=== PATIENT | female | born 1940 | race Asian ===

== ENCOUNTER 2017-05-13 08:00 | Outpatient (CLI) | payer MEDICARE, MEDICAID ==
[2017-05-13 12:40] LABS: THYROID STIMULATING HORMONE 17.07 uIU/mL (0.34-5.60)
[2017-05-13 12:44] LABS: FREE T4 (FREE THYROXINE) 0.95 ng/dL (0.58-1.64)
== END 2017-05-13 08:01 | disposition home or self-care (01) ==
LOC: LAB.WCP 08:00
PROVIDERS: ATTEND Family Medicine
DX: E03.9 Hypothyroidism, unspecified (principal)
CPT/HCPCS: 36415; 84439; 84443; 84481

== ENCOUNTER 2017-05-27 08:00 | Outpatient (CLI) | payer MEDICARE, MEDICAID ==
[2017-05-27 13:05] LABS: THYROID STIMULATING HORMONE 6.83 uIU/mL (0.34-5.60)
[2017-05-27 13:07] LABS: FREE T4 (FREE THYROXINE) 1.05 ng/dL (0.58-1.64)
== END 2017-05-27 08:01 | disposition home or self-care (01) ==
LOC: LAB.WCP 08:00
PROVIDERS: ATTEND Family Medicine
DX: E03.9 Hypothyroidism, unspecified (principal)
CPT/HCPCS: 36415; 84439; 84443; 84481

== ENCOUNTER 2017-06-27 08:00 | Outpatient (CLI) | payer MEDICARE, MEDICAID ==
[2017-06-27 13:58] LABS: THYROID STIMULATING HORMONE 4.18 uIU/mL (0.34-5.60)
[2017-06-27 14:00] LABS: FREE T4 (FREE THYROXINE) 1.09 ng/dL (0.58-1.64)
== END 2017-06-27 08:01 ==
LOC: LAB.WCP 08:00
PROVIDERS: ATTEND Family Medicine
DX: E03.9 Hypothyroidism, unspecified (principal)
CPT/HCPCS: 36415; 84439; 84443; 84481

== ENCOUNTER 2017-09-30 08:00 | Outpatient (CLI) | payer MEDICARE, MEDICAID ==
[2017-09-30 12:27] LABS: BASOPHILS % (AUTO) 0.6 %; EOSINOPHILS # (AUTO) 0.1 10^3/uL (0.0-0.7); EOSINOPHILS % (AUTO) 1.9 %; HGB - HEMOGLOBIN 14.4 g/dL (12.0-16.0); LYMPHOCYTES # (AUTO) 1.8 10^3/uL (1.5-3.5); LYMPHOCYTES % (AUTO) 32.9 %; MEAN CORPUSCULAR HEMOGLOBIN 31.1 pg (27.0-31.0); MEAN CORPUSCULAR HGB CONC 34.1 g/dL (32.0-36.0); MEAN CORPUSCULAR VOLUME 91.3 fL (81.0-99.0); MEAN PLATELET VOLUME 9.2 fL (7.9-10.8); MONOCYTES # (AUTO) 0.5 10^3/uL (0.0-1.0); MONOCYTES % (AUTO) 9.2 %; NEUTROPHILS % (AUTO) 55.4 %; PLT - PLATELET COUNT 231 10^3/uL (130-450); RED BLOOD COUNT 4.62 10^6/uL (4.20-5.40); RED CELL DISTRIBUTION WIDTH 12.9 % (12.0-15.0); WHITE BLOOD COUNT 5.4 x10^3/uL (4.8-10.8)
[2017-09-30 12:31] LABS: ALBUMIN 4.1 g/dL (3.2-5.5); ALBUMIN/GLOBULIN RATIO 1.2 (1.0-2.2); BILIRUBIN,TOTAL 0.7 mg/dL (0.2-1.0); CALCIUM 9.6 mg/dL (8.5-10.3); CREATININE 0.9 mg/dL (0.4-1.0); TOTAL PROTEIN 7.5 g/dL (6.7-8.2)
== END 2017-09-30 08:01 | disposition home or self-care (01) ==
LOC: LAB.WCP 08:00
PROVIDERS: ATTEND Family Medicine
DX: R25.2 Cramp and spasm (principal)
CPT/HCPCS: 36415; 80053; 85025; 85379

== ENCOUNTER 2017-09-30 14:32 | Emergency (ER) | payer MEDICARE, MEDICAID ==
--- NOTE | 2017-09-30 16:59 | ED Physician Documentation ---
History of Present Illness - Stated complaint Stated Complaint: L LOWER LEG PAIN - Chief complaint Chief Complaint: Ext Problem - History obtained from History obtained from: Patient - Additonal information Additional information: 77-year-old female was sent to the emergency department for ultrasound to rule out a blood clot in her left lower extremity. The patient has had 3+ weeks of pain in the left lateral calf. The patient denies any swelling.The patient denies chest pain, shortness of breath or cough. The patient denies redness, fevers or chills. Things are described as moderate. No other associated symptoms. No recent trauma or injury Review of Systems Constitutional: denies: Fever, Myalgias Throat: denies: Sore throat Cardiac: denies: Chest pain / pressure Respiratory: denies: Dyspnea, Cough Skin: denies: Rash, Laceration (s) Musculoskeletal: reports: Extremity pain. denies: Extremity swelling PD PAST MEDICAL HISTORY - Past Medical History Endocrine/Autoimmune: HyPOthyroidism - Allergies Allergies/Adverse Reactions: Allergies Allergy/AdvReac Type Severity Reaction Status Date / Time No Known Drug Allergies Allergy Verified 09/30/17 14:48 - Social History Does the pt smoke?: No Smoking Status: Never smoker Does the pt drink ETOH?: No Does the pt have substance abuse?: No PD ED PE NORMAL - General General: Alert and oriented X 3, No acute distress - HEENT HEENT: Atraumatic, PERRL, EOMI - Neck Neck: Supple, no meningeal sign - Cardiac Cardiac: RRR, Strong equal pulses - Respiratory Respiratory: No respiratory distress, Clear bilaterally - Derm Derm: Normal color, Warm and dry, No rash - Neuro Neuro: Alert and oriented X 3, Normal speech - Psych Psych: Normal affect PD ED PE EXPANDED - Extremities AL LE visual: 1 - tenderness (The patient has tenderness to palpation in this area, there is no bruising, ecchymosis, erythematous changes or signs of acute infection. The patient has normal range of motion of the bilateral hips, knees, ankles and feet. The patient ambulates without difficulty. There is normal cap refill and normal dorsalis pedis pulse) Results - Vitals Vitals: Vital Signs - 24 hr 18 09/30/17 14:41 17:10 Temperature 36.2 C L 36.8 C Heart Rate 85 89 Respiratory 18 20 Rate Blood Pressure 179/86 H 152/94 H O2 Saturation 97 100 Oxygen O2 Source Room air - Rads (name of study) US LEG Radiology: Final report received (IMPRESSION: No evidence for deep venous thrombosis. ) PD MEDICAL DECISION MAKING - ED course ED course: No acute DVT, the patient appears appropriate for discharge and ongoing outpatient management. Discussed with her and her family the findings. They understand and agree. I discussed warning signs and recommended returning to the emergency department immediately for worsening or any concerns - Sepsis Event Vital Signs: Vital Signs - 24 hr 09/30/17 09/30/17 14:41 17:10 Temperature 36.2 C L 36.8 C Heart Rate 85 89 Respiratory 18 20 Rate Blood Pressure 179/86 H 152/94 H O2 Saturation 97 100 Oxygen O2 Source Room air Departure - Departure Disposition: 01 Home, Self Care Clinical Impression: Leg pain Qualifiers: Laterality: unspecified laterality Qualified Code(s): M79.606 - Pain in leg, unspecified Condition: Good Instructions: ED Acute Pain [facility] Follow-Up: Charles Yen MD [Primary Care Provider] - Within 3 Days Comments: Please follow-up with primary care for recheck. Please return to the emergency department for worsening symptoms or any concerns
[2017-09-30 17:11] VITALS: BP 152/94
--- NOTE | 2017-09-30 17:12 | Ultrasound Report ---
Reason: L leg swelling Procedure Date: 09/30/2017 Accession Number: [id number] / [id number] Procedure: US - Duplex Ext Veins Left CPT Code: FULL RESULT: EXAM: LEFT LOWER EXTREMITY VENOUS ULTRASOUND EXAM DATE: 09/30/2017 04:54 PM. CLINICAL HISTORY: Left calf pain. COMPARISON: None. TECHNIQUE: Real-time sonographic vascular imaging was performed by the windows support engineer through the lower extremity utilizing both color-flow and Doppler spectral analysis. Multiple in home sales representative static images were saved for review. FINDINGS: Common Femoral Vein (CFV): Normal. CFV-GSV Junction: Normal. Profunda Femoral Vein (PFV): Normal. Femoral Vein (FV) Prox: Normal. Femoral Vein (FV) Mid: Normal. Femoral Vein (FV) Dist: Normal. Popliteal Vein: Normal. Posterior Tibial Veins: Normal. Peroneal Veins: Normal. Contralateral Side CFV: Normal. Other: None. IMPRESSION: No evidence for deep venous thrombosis. RADIA
== END 2017-09-30 17:47 | disposition home or self-care (01) ==
LOC: ED 14:32
DX: M79.662 Pain in left lower leg (principal); R25.2 Cramp and spasm; E03.9 Hypothyroidism, unspecified
CPT/HCPCS: 36415; 80053; 85025; 85379; 99282; 99283

== ENCOUNTER 2018-10-26 08:00 | Outpatient (CLI) | payer MEDICARE, MEDICAID ==
[2018-10-26 12:16] LABS: BASOPHILS % (AUTO) 0.4 %; EOSINOPHILS # (AUTO) 0.1 10^3/uL (0.0-0.7); EOSINOPHILS % (AUTO) 1.7 %; HGB - HEMOGLOBIN 14.6 g/dL (12.0-16.0); LYMPHOCYTES # (AUTO) 1.7 10^3/uL (1.5-3.5); LYMPHOCYTES % (AUTO) 24.9 %; MEAN CORPUSCULAR HEMOGLOBIN 30.7 pg (27.0-31.0); MEAN CORPUSCULAR HGB CONC 32.7 g/dL (32.0-36.0); MEAN CORPUSCULAR VOLUME 93.9 fL (81.0-99.0); MEAN PLATELET VOLUME 10.8 fL (7.9-10.8); MONOCYTES # (AUTO) 0.7 10^3/uL (0.0-1.0); MONOCYTES % (AUTO) 9.7 %; NEUTROPHILS # (AUTO) 4.3 10^3/uL (1.5-6.6); NEUTROPHILS % (AUTO) 62.7 %; PLT - PLATELET COUNT 249 10^3/uL (130-450); RED BLOOD COUNT 4.75 10^6/uL (4.20-5.40); RED CELL DISTRIBUTION WIDTH 12.5 % (12.0-15.0); WHITE BLOOD COUNT 6.9 x10^3/uL (4.8-10.8)
[2018-10-26 13:17] LABS: T4 (THYROXINE) 10.07 ug/dL (6.09-12.23)
[2018-10-26 13:19] LABS: THYROID STIMULATING HORMONE 2.32 uIU/mL (0.34-5.60)
[2018-10-26 13:23] LABS: FREE T4 (FREE THYROXINE) 1.26 ng/dL (0.58-1.64)
[2018-10-26 13:27] LABS: ALBUMIN 4.1 g/dL (3.2-5.5); ALBUMIN/GLOBULIN RATIO 1.1 (1.0-2.2); BILIRUBIN,TOTAL 0.8 mg/dL (0.2-1.0); CALCIUM 9.3 mg/dL (8.5-10.3); CREATININE 0.8 mg/dL (0.4-1.0); TOTAL PROTEIN 7.8 g/dL (6.7-8.2)
== END 2018-10-26 23:59 | disposition home or self-care (01) ==
LOC: LAB.WCP 08:00
PROVIDERS: ATTEND Family Medicine
DX: E03.9 Hypothyroidism, unspecified (principal); R03.0 Elevated blood-pressure reading, without diagnosis of hypertension
CPT/HCPCS: 36415; 80053; 84436; 84439; 84443; 84481; 85025

== ENCOUNTER 2018-12-06 02:00 | Emergency (ER) | payer MEDICARE, MEDICAID ==
[2018-12-06 02:27] LABS: BASOPHILS % (AUTO) 0.5 %; EOSINOPHILS # (AUTO) 0.1 10^3/uL (0.0-0.7); EOSINOPHILS % (AUTO) 1.6 %; HGB - HEMOGLOBIN 15.3 g/dL (12.0-16.0); LYMPHOCYTES # (AUTO) 1.9 10^3/uL (1.5-3.5); LYMPHOCYTES % (AUTO) 31.1 %; MEAN CORPUSCULAR HEMOGLOBIN 31.3 pg (27.0-31.0); MEAN CORPUSCULAR HGB CONC 33.8 g/dL (32.0-36.0); MEAN CORPUSCULAR VOLUME 92.4 fL (81.0-99.0); MEAN PLATELET VOLUME 9.9 fL (7.9-10.8); MONOCYTES # (AUTO) 0.5 10^3/uL (0.0-1.0); MONOCYTES % (AUTO) 7.3 %; NEUTROPHILS # (AUTO) 3.6 10^3/uL (1.5-6.6); NEUTROPHILS % (AUTO) 58.5 %; PLT - PLATELET COUNT 236 10^3/uL (130-450); RED BLOOD COUNT 4.89 10^6/uL (4.20-5.40); RED CELL DISTRIBUTION WIDTH 12.2 % (12.0-15.0); WHITE BLOOD COUNT 6.2 x10^3/uL (4.8-10.8)
--- NOTE | 2018-12-06 02:29 | ED Physician Documentation ---
History of Present Illness - Stated complaint Stated Complaint: FAST HEART - Chief complaint Chief Complaint: Cardiac - History obtained from History obtained from: Patient - History of Present Illness Timing: Prior to arrival - Additonal information Additional information: This is an 78-year-old woman who lives with her daughter complaints that she was awakened this morning about an hour prior to presentation with her heart beating hard and fast. He also felt "heavy" in her chest and she almost fell off the bed because she was a little lightheaded. She says the heaviness was about a 5 out of 10. Is essentially gone now but she did feel nauseous with it never vomited. She started having heart palpitations about 3 weeks ago and saw her primary care provider who put her on lisinopril and tested her thyroid. This is the first time she is experienced pain associated with it. She denies shortness of breath, no dysuria. No peripheral edema. No history of IL. Patient speaks Finnish with limited Estonian but her daughter provides interpretation. Review of Systems Constitutional: denies: Fever Cardiac: reports: Chest pain / pressure, Palpitations. denies: Pedal edema Respiratory: denies: Dyspnea, Cough GI: reports: Nausea. denies: Vomiting : denies: Dysuria Skin: denies: Rash Musculoskeletal: denies: Extremity swelling Neurologic: reports: Near syncope. denies: Syncope Endocrine: reports: Other (She is on thyroid replacement. Not diabetic.) PD PAST MEDICAL HISTORY - Past Medical History Cardiovascular: None Endocrine/Autoimmune: HyPOthyroidism - Past Surgical History HEENT: Cataracts Other past surgical history: Thyroidectomy for thyroid cancer - Present Medications Home Medications: Ambulatory Orders Medication Instructions Recorded Confirmed Levothyroxine [Synthroid] 75 mcg PO DAILY 12/06/18 12/06/18 Lisinopril 5 mg PO DAILY 12/06/18 12/06/18 - Allergies Allergies/Adverse Reactions: Allergies Allergy/AdvReac Type Severity Reaction Status Date / Time No Known Drug Allergies Allergy Verified 12/06/18 02:07 - Social History Does the pt smoke?: No Smoking Status: Never smoker Does the pt drink ETOH?: No Does the pt have substance abuse?: No PD ED PE NORMAL - Vitals Vital signs reviewed: Yes - General General: Alert and oriented X 3, No acute distress, Well developed/nourished - HEENT HEENT: Atraumatic, PERRL, Moist mucous membranes - Neck Neck: No adenopathy - Cardiac Cardiac: RRR, No murmur, Strong equal pulses - Respiratory Respiratory: No respiratory distress, Clear bilaterally - Abdomen Abdomen: Normal bowel sounds, Soft, Non tender - Derm Derm: Normal color, Warm and dry, No rash - Extremities Extremities: No edema - Neuro Neuro: Alert and oriented X 3, No motor deficit, No sensory deficit, Normal speech - Psych Psych: Normal mood, Normal affect Results - Vitals Vitals: Vital Signs - 24 hr 12/06/18 12/06/18 12/06/18 02:04 02:24 03:05 Temperature 36.3 C L Heart Rate 77 74 Respiratory 17 15 16 Rate Blood Pressure 193/80 H 170/78 H O2 Saturation 95 95 12/06/18 12/06/18 12/06/18 03:13 04:04 05:19 Temperature Heart Rate 66 61 60 Respiratory 15 15 17 Rate Blood Pressure 180/72 H 148/79 H 155/69 H O2 Saturation 94 95 94 12/06/18 06:12 Temperature Heart Rate 65 Respiratory 16 Rate Blood Pressure 144/75 H O2 Saturation 95 Oxygen O2 Source Room air - EKG (time done) 0213 Rate: Rate (enter#) (78) Rhythm: NSR Intervals: Other (Narrow QRS) Ischemia: Non specific changes 0525 Rate: Rate (enter#) (58) Rhythm: NSR, Other Ischemia: ST elevation c/w repol (V1 and V3) Compare to prior EKG: Unchanged from prior EKG - Labs Labs: Laboratory Tests 12/06/18 12/06/18 12/06/18 02:20 02:20 02:20 WBC 6.2 RBC 4.89 Hgb 15.3 Hct 45.2 MCV 92.4 MCH 31.3 H MCHC 33.8 RDW 12.2 Plt Count 236 MPV 9.9 Neut # (Auto) 3.6 Lymph # (Auto) 1.9 [place] # (Auto) 0.5 Eos # (Auto) 0.1 Baso # (Auto) 0.0 Absolute Nucleated RBC 0.00 Nucleated RBC % 0.0 Sodium 141 Potassium 3.7 Chloride 105 Carbon Dioxide 27 Anion Gap 9.0 BUN 21 H Creatinine 0.9 Estimated GFR (MDRD) 60 L Glucose 121 H Calcium 9.4 Total Bilirubin 0.7 AST 25 ALT 23 Alkaline Phosphatase 80 Troponin I High Sens 5.3 Total Protein 8.0 Albumin 4.2 Globulin 3.8 Albumin/Globulin Ratio 1.1 Lipase 48 Urine Color Urine Clarity Urine pH Ur Specific [place] Urine Protein Urine Glucose (UA) Urine Ketones Urine Occult Blood Urine Nitrite Urine Bilirubin Urine Urobilinogen Ur Leukocyte Esterase Urine RBC Urine WBC Ur Squamous Epith Cells Urine Bacteria Ur Microscopic Review Urine Culture Comments 12/06/18 12/06/18 03:00 05:30 WBC RBC Hgb Hct MCV MCH MCHC RDW Plt Count MPV Neut # (Auto) Lymph # (Auto) [place] # (Auto) Eos # (Auto) Baso # (Auto) Absolute Nucleated RBC Nucleated RBC % Sodium Potassium Chloride Carbon Dioxide Anion Gap BUN Creatinine Estimated GFR (MDRD) Glucose Calcium Total Bilirubin AST ALT Alkaline Phosphatase Troponin I High Sens 5.0 Total Protein Albumin Globulin Albumin/Globulin Ratio Lipase Urine Color YELLOW Urine Clarity CLEAR Urine pH 7.0 Ur Specific [place] <=1.005 Urine Protein NEGATIVE Urine Glucose (UA) NEGATIVE Urine Ketones NEGATIVE Urine Occult Blood NEGATIVE Urine Nitrite NEGATIVE Urine Bilirubin NEGATIVE Urine Urobilinogen 0.2 (NORMAL) Ur Leukocyte Esterase SMALL H Urine RBC 0-5 Urine WBC 0-3 Ur Squamous Epith Cells FEW Squamous Urine Bacteria Rare Ur Microscopic Review INDICATED Urine Culture Comments INDICATED PD MEDICAL DECISION MAKING - ED course Complexity details: reviewed results, re-evaluated patient, d/w patient, d/w family ED course: Patient's chest x-ray was normal. Her EKG did not show acute ischemic changes. She has some minor ST elevation in the 2 but I believe this is secondary to repolarization because she has deep S waves in those leads. CBC and CMP are normal. Patient was monitored here in the emergency department and had no episodes of tachycardia. Repeat troponin and EKG were unchanged. Results were discussed with the daughter and patient. The daughter is concerned about her thyroid level. She was requesting a thyroid test to be added to her labs and a TSH has been added but they need to follow-up with her primary care provider for that result. The patient's daughter states understanding. Departure - Departure Disposition: 01 Home, Self Care Clinical Impression: Palpitations Condition: Good Instructions: ED Chest Pain Atypical Unkn Cause Follow-Up: BONG PEREZ, MSN, BOILER HOUSE INSPECTOR [Primary Care Provider] - Comments: If she experiences another episode where she feels like her heart is racing check her pulse to verify what the rate actually is. Normal is between 60 and 100. You will have to follow-up with her primary provider for the results of the thyroid screen.
[2018-12-06] MEDS ORDERED: ASPIRIN CHEW 81 MG TABLET PO STA (02:30)
[2018-12-06 02:40] LABS: ALBUMIN 4.2 g/dL (3.2-5.5); ALBUMIN/GLOBULIN RATIO 1.1 (1.0-2.2); BILIRUBIN,TOTAL 0.7 mg/dL (0.2-1.0); CALCIUM 9.4 mg/dL (8.5-10.3); CREATININE 0.9 mg/dL (0.4-1.0)
--- NOTE | 2018-12-06 03:03 | XRAY Report ---
Reason: chest pain Procedure Date: 12/06/2018 Accession Number: [id number] / [id number] Procedure: XR - Chest 1 View X-Ray CPT Code: 91775 FULL RESULT: EXAM: CHEST RADIOGRAPHY EXAM DATE: 12/06/2018 02:55 AM. CLINICAL HISTORY: Chest pain. COMPARISON: 11/12/2010 12:01 PM. TECHNIQUE: 1 view. FINDINGS: Lungs/Pleura: No focal pneumonia or edema evident. No gross pneumothorax or pleural effusion. Mediastinum: Mild cardiomegaly. Stable aortic contour. Other: None. IMPRESSION: Mild cardiomegaly without overt heart failure. RADIA
[2018-12-06 03:18] LABS: BILIRUBIN,URINE NEGATIVE (NEGATIVE); GLUCOSE, URINE (UA) NEGATIVE (NEGATIVE); KETONES,URINE (UA) NEGATIVE (NEGATIVE); LEUKOCYTE ESTERASE, URINE SMALL (NEGATIVE); NITRITE,URINE NEGATIVE (NEGATIVE); OCCULT BLOOD,URINE NEGATIVE (NEGATIVE); PROTEIN,URINE NEGATIVE (NEGATIVE); UROBILINOGEN,URINE 0.2 (NORMAL) E.U./dL (NORMAL)
[2018-12-06 03:19] LABS: CLARITY,URINE CLEAR (CLEAR)
[2018-12-06 03:57] LABS: BACTERIA,URINE Rare /HPF (None Seen); RBC,URINE 0-5 /HPF (0-5); SQUAMOUS EPITHELIAL CELL,UR FEW Squamous (<= Few)
[2018-12-06 06:14] VITALS: BP 144/75
== END 2018-12-06 06:30 | disposition home or self-care (01) ==
LOC: ED 02:00
DX: R00.2 Palpitations (principal); R07.89 Other chest pain; E03.9 Hypothyroidism, unspecified; Z85.850 Personal history of malignant neoplasm of thyroid
CPT/HCPCS: 36415; 71045; 80053; 81001; 81003; 83690; 84443; 84484; 85025; 87086; 93005; 99284

== ENCOUNTER 2018-12-06 22:06 | Outpatient (CLI) | payer MEDICARE, MEDICAID | END 2018-12-06 22:07 | disposition critical access hospital (66) | LOC: EMS 22:06 | PROVIDERS: ATTEND Surgery | DX: R07.89 Other chest pain (principal) | CPT/HCPCS: A0425; A0427 ==

== ENCOUNTER 2018-12-06 22:23 | Emergency (ER) | payer MEDICARE, MEDICAID ==
--- NOTE | 2018-12-06 22:27 | ED Physician Documentation ---
PD HPI CHEST PAIN - Stated complaint Stated Complaint: CP - History obtained from History obtained from: Patient, EMS - History of Present Illness Timing - onset: Enter time (17:00), Today Timing - onset during: Rest Timing - details: Abrupt onset, Now resolved Pain level now: 0 Quality: Pressure Location: Substernal Radiation: Other (no radiation) Improved by: Nitro Worsened by: Other (no exacerbating factors) Associated symptoms: Palpitations. No: Shortness of air, Diaphoresis, Nausea, Vomiting, Feeling faint / dizzy, General Weakness Similar symptoms before: No diagnosis Recently seen: Emergency Dept - Additional information Additional information: BIBA, c/o "pounding" palpitations and chest heaviness. She was T+R from this ED in the database developer hours today with reassuring tests including EKG x 2 and troponin x 2, as well as CXR. She returns for recurrence of the symptoms. Review of Systems Constitutional: denies: Fever, Chills, Sweats Cardiac: reports: Chest pain / pressure, Palpitations. denies: Pedal edema, Calf pain Respiratory: reports: Reviewed and negative GI: reports: Reviewed and negative Musculoskeletal: denies: Back pain, Extremity swelling Neurologic: denies: Generalized weakness, Focal weakness, Numbness, Headache PD PAST MEDICAL HISTORY - Past Medical History Cardiovascular: None Respiratory: None Neuro: None Endocrine/Autoimmune: HyPOthyroidism GI: GERD HOME HEALTH ASSISTANT: None : None HEENT: None Psych: None Musculoskeletal: None Derm: None - Past Surgical History Past Surgical History: Yes General: Other HEENT: Cataracts - Present Medications Home Medications: Ambulatory Orders Medication Instructions Recorded Confirmed Levothyroxine [Synthroid] 75 mcg PO DAILY 12/06/18 12/06/18 Lisinopril 5 mg PO DAILY 12/06/18 12/06/18 - Allergies Allergies/Adverse Reactions: Allergies Allergy/AdvReac Type Severity Reaction Status Date / Time No Known Drug Allergies Allergy Verified 12/06/18 22:41 - Social History Does the pt smoke?: No Smoking Status: Never smoker Does the pt drink ETOH?: No Does the pt have substance abuse?: No - Immunizations Immunizations are current?: Yes - POLST Patient has POLST: No PD ED PE NORMAL - Vitals Vital signs reviewed: Yes - General General: Alert and oriented X 3, No acute distress, Well developed/nourished - HEENT HEENT: Moist mucous membranes - Neck Neck: No JVD - Cardiac Cardiac: RRR, No murmur, No gallop, No rub - Respiratory Respiratory: No respiratory distress, Clear bilaterally - Abdomen Abdomen: Soft, Non tender - Derm Derm: Normal color, Warm and dry - Extremities Extremities: No edema Results - Vitals Vitals: Vital Signs - 24 hr 12/06/18 12/06/18 12/07/18 22:25 22:28 00:18 Temperature 37.1 C Heart Rate 85 64 Respiratory 20 18 Rate Blood Pressure 159/83 H 127/74 Blood Pressure 149/93 H [Left] Blood Pressure 159/83 H [Right] O2 Saturation 95 96 12/07/18 00:42 Temperature Heart Rate 63 Respiratory 24 Rate Blood Pressure 136/73 H Blood Pressure [Left] Blood Pressure [Right] O2 Saturation 97 Oxygen O2 Source Room air - EKG (time done) No standard instances Rate: Rate (enter#) (85) Rhythm: NSR [place]: Normal Intervals: Normal ND QRS: Normal Ischemia: Non specific changes (NSST changes V1, V2 ) Compare to prior EKG: Unchanged from prior EKG - Labs Labs: Laboratory Tests 12/06/18 12/06/18 12/06/18 22:39 22:39 22:39 WBC 6.4 RBC 4.80 Hgb 15.0 Hct 44.6 MCV 92.9 MCH 31.3 H MCHC 33.6 RDW 12.2 Plt Count 242 MPV 9.8 Neut # (Auto) 4.3 Lymph # (Auto) 1.6 [place] # (Auto) 0.4 Eos # (Auto) 0.1 Baso # (Auto) 0.0 Absolute Nucleated RBC 0.00 Nucleated RBC % 0.0 Sodium 140 Potassium 3.8 Chloride 103 Carbon Dioxide 27 Anion Gap 10.0 BUN 20 Creatinine 0.9 Estimated GFR (MDRD) 60 L Glucose 214 H Calcium 8.9 Troponin I High Sens 3.5 PD MEDICAL DECISION MAKING - ED course Complexity details: reviewed old records, reviewed results, re-evaluated patient, considered differential, d/w patient, d/w family ED course: nonspecific ST changes V1, V2 (noted on previous EKG as well); the ST segments appear to be nearly isoelectric with the T-P segments, with slight ND depressions, but only in these two leads. Normal high specificity troponin; this is the third such result today. She was chest-pain/pressure-free during ED stay. Her chief complaint is "pounding" palpitations with some degree of chest pressure. I discussed the results with patient and family and encouraged return if worse, and f/u with PMD for consideration of further testing. Family expresses concern that patient becomes anxious with these symptoms and her blood pressure then becomes abnormally high. I provided four tablets of 0.25mg alprazolam to be taken Q6 hours PRN anxiety, but explained that this does not specifically mean that her symptoms are being caused by anxiety, and that more tests might be needed to further determine or rule-out causes of her symptoms. Departure - Departure Disposition: 01 Home, Self Care Clinical Impression: Palpitations Condition: Good Instructions: ED Chest Pain Atypical Unkn Cause Follow-Up: Sawyer Colón MD [Primary Care Provider] - (Call in the morning to arrange for next available appointment) Discharge Date/Time: 12/07/18 00:54
[2018-12-06 22:42] LABS: BASOPHILS % (AUTO) 0.5 %; EOSINOPHILS # (AUTO) 0.1 10^3/uL (0.0-0.7); EOSINOPHILS % (AUTO) 1.1 %; LYMPHOCYTES # (AUTO) 1.6 10^3/uL (1.5-3.5); LYMPHOCYTES % (AUTO) 24.5 %; MEAN CORPUSCULAR HEMOGLOBIN 31.3 pg (27.0-31.0); MEAN CORPUSCULAR HGB CONC 33.6 g/dL (32.0-36.0); MEAN CORPUSCULAR VOLUME 92.9 fL (81.0-99.0); MEAN PLATELET VOLUME 9.8 fL (7.9-10.8); MONOCYTES # (AUTO) 0.4 10^3/uL (0.0-1.0); MONOCYTES % (AUTO) 6.6 %; NEUTROPHILS # (AUTO) 4.3 10^3/uL (1.5-6.6); NEUTROPHILS % (AUTO) 66.7 %; PLT - PLATELET COUNT 242 10^3/uL (130-450); RED CELL DISTRIBUTION WIDTH 12.2 % (12.0-15.0); WHITE BLOOD COUNT 6.4 x10^3/uL (4.8-10.8)
[2018-12-06 22:52] LABS: CALCIUM 8.9 mg/dL (8.5-10.3); CREATININE 0.9 mg/dL (0.4-1.0)
[2018-12-07] MEDS ORDERED: ALPRAZolam 0.25 MG TABLET PO STA (00:35)
[2018-12-07 00:43] VITALS: BP 136/73
== END 2018-12-07 00:54 | disposition home or self-care (01) ==
LOC: EDUNIT# → ED 22:23
DX: R00.2 Palpitations (principal); R07.89 Other chest pain; R94.31 Abnormal electrocardiogram [ECG] [EKG]; E03.9 Hypothyroidism, unspecified; Z85.850 Personal history of malignant neoplasm of thyroid
CPT/HCPCS: 36415; 71045; 80048; 80053; 81001; 83690; 84443; 84484; 85025; 87086; 93005; 99284; A9270

== ENCOUNTER 2019-03-10 12:22 | Outpatient (CLI) | payer MEDICARE | END 2019-03-10 12:23 | disposition home or self-care (01) | LOC: DI 12:22 | PROVIDERS: ATTEND Nurse Practitioner Family | DX: I48.0 Paroxysmal atrial fibrillation (principal) | CPT/HCPCS: 93306 ==

== ENCOUNTER 2019-11-15 08:58 | Outpatient (CLI) | payer MEDICARE, MEDICAID ==
[2019-11-15 12:01] LABS: BASOPHILS % (AUTO) 0.4 %; EOSINOPHILS # (AUTO) 0.1 10^3/uL (0.0-0.7); EOSINOPHILS % (AUTO) 1.3 %; HGB - HEMOGLOBIN 14.6 g/dL (12.0-16.0); LYMPHOCYTES % (AUTO) 29.6 %; MEAN CORPUSCULAR HEMOGLOBIN 31.5 pg (27.0-31.0); MEAN CORPUSCULAR HGB CONC 33.3 g/dL (32.0-36.0); MEAN CORPUSCULAR VOLUME 94.6 fL (81.0-99.0); MEAN PLATELET VOLUME 10.5 fL (7.9-10.8); MONOCYTES # (AUTO) 0.6 10^3/uL (0.0-1.0); MONOCYTES % (AUTO) 8.7 %; NEUTROPHILS % (AUTO) 59.4 %; PLT - PLATELET COUNT 245 10^3/uL (130-450); RED BLOOD COUNT 4.64 10^6/uL (4.20-5.40); RED CELL DISTRIBUTION WIDTH 12.3 % (12.0-15.0); WHITE BLOOD COUNT 6.8 x10^3/uL (4.8-10.8)
[2019-11-15 12:06] LABS: ALBUMIN 4.3 g/dL (3.2-5.5); ALBUMIN/GLOBULIN RATIO 1.3 (1.0-2.2); ALKALINE PHOSPHATASE 55 IU/L (42-121); ALT ALANINE AMINOTRANSFERASE 21 IU/L (10-60); AST ASPARTATE AMINOTRANSFERASE 24 IU/L (10-42); BILIRUBIN,TOTAL 0.6 mg/dL (0.2-1.0); BUN - BLOOD UREA NITROGEN 27 mg/dL (6-20); CALCIUM 9.1 mg/dL (8.5-10.3); CARBON DIOXIDE - CO2 27 mmol/L (21-32); CHLORIDE 107 mmol/L (101-111); CHOL/HDL RATIO 4.1 (<4.4); CHOLESTEROL 227 mg/dL; CREATININE 0.8 mg/dL (0.4-1.0); GLUCOSE 102 mg/dL (70-100); HDL CHOLESTEROL 55 mg/dL; LDL CHOLESTEROL,CALCULATED 151 mg/dL; LDL/HDL RATIO 2.7 (<4.4); SODIUM 143 mmol/L (135-145); TOTAL PROTEIN 7.7 g/dL (6.7-8.2); VLDL CHOLESTEROL 21 mg/dL
== END 2019-11-15 23:59 | disposition home or self-care (01) ==
LOC: LAB.WCP 08:58
PROVIDERS: ATTEND Nurse Practitioner Family
DX: I10 Essential (primary) hypertension (principal); E03.9 Hypothyroidism, unspecified
CPT/HCPCS: 36415; 80053; 80061; 83721; 84443; 85025